=== PATIENT | female | born 1990 | race Caucasian/White ===

== ENCOUNTER 2018-03-22 19:17 | Inpatient (IN) | payer BC ==
[~2018-03-22 19:17] MED LIST: Sodium Chloride 0.9% 10 ML Syringe FLUSH PRN; Terbutaline 1 MG/ML SDV SUBCUT ONE
[2018-03-22] MEDS ORDERED: Lactated Ringers 500 ML IV ONE (20:21)
[2018-03-22] MEDS ORDERED: Carboprost Tromethamine 250 MCG/1 ML Amp IM PRN (20:21)
[2018-03-22] MEDS ORDERED: Sodium Chloride 0.9% 10 ML Syringe FLUSH PRN (20:21)
[2018-03-22] MEDS ORDERED: fentaNYL 100 MCG/2 ML SDV IVPUSH PRN (20:21)
[2018-03-22] MEDS ORDERED: Lidocaine 1% 30 ML SDV INJECT PRN (20:21)
[2018-03-22] MEDS ORDERED: Tranexamic Acid 1,000 MG in Sodium Chloride 0.9% 100 ML IV PRN (20:21)
[2018-03-22] MEDS ORDERED: Misoprostol 400 MCG (4 X 100 MCG TAB) RECTAL PRN (20:21)
[2018-03-22] MEDS ORDERED: Methylergonovine 0.2 MG/1 ML Amp IM PRN (20:21)
[2018-03-22] MEDS ORDERED: Ondansetron 4 MG/2 ML SDV IV PRN (20:21)
[2018-03-22] MEDS ORDERED: Oxytocin/Normal Saline 30 UNIT/500 ML BAG IV SCH (20:30)
[2018-03-22] MEDS: Lactated Ringers 1,000 ML IV SCH (22:04)
[2018-03-23] MEDS ORDERED: Nalbuphine 10 MG/1 ML Vial IM ONE (01:57)
[2018-03-23] MEDS ORDERED: Bupivacaine 0.75%/D5W 2 ML Amp ONE (04:15)
[2018-03-23] MEDS ORDERED: fentaNYL 100 MCG/2 ML SDV ONE (04:16)
[2018-03-23] MEDS ORDERED: EPINEPHrine 1 MG/ML SDV ONE (04:16)
[2018-03-23] MEDS: Lactated Ringers 1,000 ML IV SCH ×2 (04:17→06:03)
--- NOTE | 2018-03-23 04:43 | PCM.SN ---
- Free Text/Narrative Note: Intrathecal. Sitting position, sterile prep and drape, 1% lidocaine w bicarb for skinwheal to L2 L3 interspace. Introducer, 24 ga pencan x 1. Pos CSF, neg heme, neg parasthesia. 15 mcg pf sufenta, 0.1 ml pf 1:1000 epi, 35 mcg pf fentanyl, 0.4 ml pf ns and 6 mg of 0.75% pf bupivacaine injected after CSF aspiration. Pt to L lateral position. Procedure time 3656 to 2022
[2018-03-23] MEDS ORDERED: Calcium Carbonate 500 MG Tab.Chew PO PRN (05:46)
[2018-03-23] MEDS ORDERED: Famotidine 20 MG/2 ML SDV IVPUSH ONE (05:47)
--- NOTE | 2018-03-23 07:26 | HP ---
CHIEF COMPLAINT: Spontaneous rupture. HISTORY OF PRESENT ILLNESS: The patient is a 28-year-old 2, para 1-0-0- 1, currently at 39-4/7 weeks' gestation based on last menstrual period and consistent with conception date and 19-week ultrasound. The patient reports that around 4:30 this afternoon, she noticed leakage of fluid consistent with spontaneous rupture, although not near as large volume of fluid as when she had artificial rupture performed with her prior . movement has been good. She has had some irregular contractions that are just now starting to get stronger, and denies any significant pelvic pressure. Reports these contractions, however, also seem like they are mostly low down in the uterus and not the entire uterus like her Chas Dykes were. No vaginal bleeding. movement has been good. No symptoms of preeclampsia or acute illness. No other concerns at this time. HISTORY: Ultrasound at 19 weeks' gestation showed oblique breech with anterior placenta. Estimated weight at that time 28.6 percentile with normal anatomy. Blood work shows blood type O negative. Rubella immune. Syphilis nonreactive. Urine culture negative. HIV negative. Gonorrhea and Chlamydia negative. TSH normal at 1.16. Wet prep was negative. Platelets 197. One-hour glucose tolerance test of 132. Group B Strep test was negative. This , she has been taking Zinc and vitamin D and had a history of unstable lie, and when she presented for external cephalic version, was found to be spontaneously converted to cephalic presentation. She has a history of gestational diabetes in her prior ; however, this was diet controlled after she stopped eating cookies. PAST MEDICAL HISTORY: Chickenpox as a child, mild case; gestational diabetes, prior ; multiple body piercings; and abnormal Pap smear with negative colposcopy. Menarche age 11 with menses every 28 days and flow of 5 days. Believes that she is resistant to amoxicillin and penicillin as they just do not seem to work for her. She has mild scoliosis and severe needle phobia. PAST SURGICAL HISTORY: PE tubes as a child and wisdom teeth extraction. FAMILY HISTORY: Mother, father, and brother all without any known medical problems. Maternal grandmother, no medical problems. Maternal grandfather with lung cancer and was a smoker. Paternal grandmother has a multitude of medical problems, most of which are felt to be self diagnosed; she, however, has had known stroke and osteoporosis. Paternal grandfather has parkinsonism. Family history is negative for defects, multiple births, anesthesia problems, bleeding problems, clotting disorders, cystic fibrosis, and seizures. SOCIAL HISTORY: She is to Chirag, and they have 1 child together so far, and this will be their second. She has never smoked. Denies any use of drugs, only uses alcohol rarely, and did not have any exposure during the . She works at [employer] and hCirag is a field broomer fulfillment representative for the [email or web address] and also raises his own registered [employer] cattle. He is also a nonsmoker. Reportedly, he and his family are all healthy. MEDICATIONS: 1. vitamins. 2. Zinc. 3. Vitamin D. ALLERGIES: No known drug allergies. REVIEW OF SYSTEMS: Pertinent positives and negatives as per the history of present illness. No recent fever, chills, diarrhea, constipation, nausea, vomiting, skin rashes, headaches, blurry vision, chest pain, shortness of breath, lower extremity edema, or other concerns. PHYSICAL EXAMINATION: Vital Signs: Blood pressure is 132/82 and pulse of 94. She is afebrile. General: This is a pleasant 28-year-old female, who appears her stated age. HEENT: Grossly unremarkable. Heart: Regular without obvious murmur. Lungs: Clear to auscultation bilaterally. Abdomen: Gravid, soft, and nontender. Pelvic: heart tones tracing at 130 beats per minute at baseline with moderate [id number] variability and accelerations noted. Denio showing contractions anywhere from every 2 to 5 minutes. They tend to come in 3s or 4s with pauses in between. Cervix is tight 2 cm dilated, 75% effaced, very soft, and remains posterior. Forebag of fluid is appreciated, and attempted rupture with AmniHook and that was not successful. Extremities: No edema, erythema, or tenderness noted. ASSESSMENT: 1. A 39-4/7 weeks' intrauterine . 2. History consistent with spontaneous rupture of membranes. However, that must have been a forebag, and she is not in an regular labor pattern. 3. Blood type O negative, rubella immune, and group B Streptococcus negative. 4. Refused influenza vaccine. 5. History of gestational diabetes, prior . PLAN: We will initiate Pitocin at this time and get the baby's head down a little bit lower to the cervix, and then anticipate if she is in normal labor, we can leave the amniotic sac intact. If this seems to be slowing her down, when the head is better applied and she is having regular contractions, I will come back in and perform amniotomy. All of this was discussed with the patient. She plans on having an intrathecal for pain management. Her questions have been answered. [facility] /[id number] TESSY
--- NOTE | 2018-03-23 10:18 | DEL ---
DATE: 03/23/2018 PREPROCEDURE DIAGNOSES: 1. A 39 and 5/7-week intrauterine by last menstrual period, confirmed with a 19-week ultrasound. 2. 2, para 1-0-0-1. 3. Blood type O negative, rubella immune, group B streptococcus negative. 4. Refused influenza vaccine. 5. History of gestational diabetes prior . POSTPROCEDURE DIAGNOSES: 1. A 39 and 5/7-week intrauterine by last menstrual period, confirmed with a 19-week ultrasound. 2. 2, para 2-0-0-2. 3. Blood type O negative, rubella immune, group B streptococcus negative. 4. Refused influenza vaccine. 5. History of gestational diabetes prior . 6. Status post spontaneous vaginal delivery. 7. Repair of a first-degree laceration. BRIEF HISTORY: A 28-year-old female with the above-listed diagnoses presented to the hospital reporting spontaneous rupture of membranes at home about 4:30 in the afternoon on 03/22/2018. At presentation, she was having an irregular contraction pattern, and minimal cervical change from prior exams at the office. Pitocin was started, and on cervical exam, baby found to be ballotable and secondary bag still intact. After labor was well established, she received an intrathecal for anesthesia and continued it on to complete. Bag of water was then ruptured and noted to be clear. After allowing her a little bit of time to rest, she was able to deliver her baby with only pushing through 2 contractions. DETAILS: With the patient in lithotomy position, she delivered a viable male over intact perineum in the OA position. was dried, stimulated, and bulb suctioned, placed upon mother's abdomen. After a delay, three-vessel umbilical cord was doubly clamped and then cut, and the cord blood sample was obtained. Placenta was then delivered by gentle cord traction and concomitant uterine massage. Labia and vagina inspected. There was a first-degree laceration which was repaired with a simple running stitch of 3-0 Vicryl in the usual fashion with good reapproximation. COMPLICATIONS: None. ESTIMATED BLOOD LOSS: 200 mL. DISPOSITION: Mother and baby to stay in the room at this time to initiate . [facility] /[id number] [facility]
[2018-03-23] MEDS: Ibuprofen 800 MG Tab PO PRN (16:40)
[2018-03-23] MEDS: Acetaminophen 325 MG Tab PO PRN (22:01)
[2018-03-24] MEDS: Ibuprofen 800 MG Tab PO PRN ×3 (00:57→22:07)
[2018-03-24] MEDS: Acetaminophen 325 MG Tab PO PRN ×2 (05:16→18:02)
--- NOTE | 2018-03-24 08:29 | PN ---
DATE: 03/24/2018 SUBJECTIVE: day #1, status post uncomplicated vaginal delivery with first-degree repair. The patient reports she is doing well, voiding without difficulties, has not yet had a bowel movement. Uterine cramping is more severe than she remembers with prior pregnancies and delivery, but she also reports the labor was worse as well. No headaches or blurry vision. No chest pain or shortness of breath. seems to be going well. Uncertain if she wants to go home today or tomorrow. She will discuss things with her and reports that she has received her RhoGAM because the baby's blood type was O positive and her's is O negative. OBJECTIVE: General: Pleasant, well-appearing, 28-year-old female. Vital Signs: Temperature 97.6, pulse 65, blood pressure 102/68, respiratory rate of 16, and O2 saturations 99% on room air. Heart: Regular without murmur. Lungs: Clear to auscultation bilaterally. Abdomen: Soft and nontender. Fundus is firm and 3 below the umbilicus. Mild abdominal distention noted. Extremities: No edema, erythema, or tenderness. ASSESSMENT: 1. 2, para 2-0-0-2, status post uncomplicated spontaneous vaginal delivery. 2. Status post first-degree laceration repair. 3. Blood type O negative. Baby's blood type is O positive. She has received her RhoGAM. PLAN: Continue normal cares and anticipate discharge home either later today or possibly tomorrow. We will see how she does through the course of the morning before we decide. [facility] /[id number]
[2018-03-24] MEDS: Docusate Sodium 100 MG Cap PO PRN (10:14)
[2018-03-24] MEDS ORDERED: Lidocaine 1% 30 ML SDV INJECT ONE (11:33)
[2018-03-24] MEDS ORDERED: Bupivacaine 0.75%/D5W 2 ML Amp INJECT ONE (11:33)
[2018-03-24] MEDS ORDERED: fentaNYL 100 MCG/2 ML SDV ITHECAL ONE (11:33)
[2018-03-25] MEDS: Docusate Sodium 100 MG Cap PO PRN (08:55)
[2018-03-25 16:08] VITALS: BP 105/50
--- NOTE | 2018-03-26 10:16 | DISCH ---
ADMITTING DIAGNOSES: 1. A 39 and 4/7 weeks' intrauterine by last menstrual period. 2. 2, para 1-0-0-1. 3. Premature rupture of membranes. 4. Blood type O negative, rubella immune, and group B streptococcus negative. 5. Refused influenza vaccine. 6. History of gestational diabetes, prior ; not affecting this . DISCHARGE DIAGNOSES: 1. A 39 and 4/7 weeks' intrauterine by last menstrual period. 2. 2, now para 2-0-0-2. 3. Premature rupture of membranes. 4. Blood type O negative, rubella immune, and group B streptococcus negative. 5. Refused influenza vaccine. 6. History of gestational diabetes, prior ; not affecting this . 7. Spontaneous vaginal delivery at 39 weeks 5 days' gestation. 8. Status post first-degree laceration repair. 9. Status post RhoGAM administration for Rhesus positive blood type on the baby. BRIEF HISTORY: A 28-year-old female admitted to the hospital with the above- listed diagnoses after presenting with spontaneous rupture of membranes at home. She was not in an active labor pattern, and Pitocin was initiated. Later she was found to have a secondary bag still present which was ruptured, and after that, she readily went on to vaginal delivery without complications. Stage I estimated at about 7 hours, stage II only 3 minutes, and stage III is only 7 minutes. See delivery notes and history and physical for full details. HOSPITAL COURSE: Hospital course has been good. Since delivery, she has been ambulating, tolerating regular diet, voiding without difficulties, had not yet had a bowel movement. Denies any symptoms of preeclampsia. has been going well. She is ready for discharge at this time. DISCHARGE CONDITION: Good. PHYSICAL EXAMINATION: Vital Signs: Temperature is 97.7, pulse of 61, blood pressure 105/50, usually runs in the one-teens over 60s and 70s; respiratory rate of 20; and O2 saturation 100% on room air. Heart: Regular without murmur. Lungs: Clear to auscultation bilaterally. Abdomen: Soft and nontender. Mild distention present. Fundus is firm and well below the umbilicus. Extremities: No edema, erythema, or tenderness noted. DISCHARGE MEDICATIONS: 1. Tylenol 650 mg every 6 hours as needed for pain. 2. Ibuprofen 600 mg every 6 hours as needed for pain. 3. vitamin, continue 1 daily. 4. Colace 100 mg twice daily as needed for constipation. DISPOSITION: Home with family. FOLLOWUP: She will be seen in the office in 6 weeks or sooner if any problems arise. We will also be able to check in with her when she brings her child for the well-baby visit. [facility] /[id number]
== END 2018-03-25 13:00 | disposition home or self-care (01) | DRG 560 ==
LOC: DL.OBCHECK 19:17 → DL.OB 19:21 → OBSVTOIN 03-23 06:53 → DL.MS 03-24 20:17
PROVIDERS: ADMIT Family Medicine; ATTEND Family Medicine
PROC: 10E0XZZ Delivery of Products of Conception, External Approach (ICD-10-PCS; principal; 2018-03-23)
PROC: 0HQ9XZZ Repair Perineum Skin, External Approach (ICD-10-PCS; 2018-03-23)
PROC: 3E0S3GC Introduction of Other Therapeutic Substance into Epidural Space, Percutaneous Approach (ICD-10-PCS; 2018-03-23)
DX: O70.0 First degree perineal laceration during delivery (principal); Z3A.39 39 weeks gestation of pregnancy; Z37.0 Single live birth; Z87.59 Personal history of other complications of pregnancy, childbirth and the puerperium
CPT/HCPCS: 36415; 36430; 59300; 59409; 85027; 85460; 86850; 86870; 86900; 86901; A9270-GY; J2300; J2405; J2590; J2790; J3010; J3490; J7120

== ENCOUNTER 2019-05-07 16:56 | Emergency (ER) | payer BC ==
[2019-05-07 17:13] VITALS: BP 121/80
[2019-05-07] MEDS ORDERED: Ketorolac 30 MG/ML SDV IVPUSH ONE (17:39)
[2019-05-07] MEDS ORDERED: Ondansetron 4 MG/2 ML SDV IV ONE (17:39)
[2019-05-07] MEDS ORDERED: Sodium Chloride 0.9% 10 ML Syringe FLUSH PRN (17:39)
[2019-05-07] MEDS ORDERED: Sodium Chloride 0.9% 1,000 ML IV ONE (17:39)
--- NOTE | 2019-05-07 17:41 | EDM.PDOC ---
"Scribed by Kajal Ibrahim 05/07/19 [id number] for Taylor Tyler MD ED HPI GENERAL MEDICAL PROBLEM - General Chief Complaint: Abdominal Pain Stated Complaint: PAIN IN LWR LT SIDE Time Seen by Provider: 05/07/19 17:17 Source of Information: Reports: Patient, RN, RN Notes Reviewed History Limitations: Reports: No Limitations - History of Present Illness INITIAL COMMENTS - FREE TEXT/NARRATIVE: Patient presents to ER with complaint of left lower abdominal pain which started yesterday. Lower left abdominal pain radiates into her back. Patient had diarrhea today. Pain just started today. No problems with urination. Onset Date: 05/06/19 Duration: Constant Location: Reports: Abdomen Quality: Reports: Ache Severity: Moderate Improves with: Reports: None Worsens with: Reports: None Associated Symptoms: Reports: No Other Symptoms Left Lower Abdominal Pain Score (Numeric/FACES): 9 - Related Data Allergies Allergy/AdvReac Type Severity Reaction Status Date / Time No Known Allergies Allergy Verified 03/23/18 01:01 Home Meds: Home Meds Cholecalciferol (Vitamin D3) [Vitamin D3] 1,000 units PO DAILY 03/23/18 [History ] Ferrous Sulfate [Iron] 325 mg PO DAILY 03/23/18 [History] Magnesium Oxide 250 mg PO DAILY 03/23/18 [History] #103/Iron Fumarate/Fa [ ] 1 tab PO DAILY 03/23/18 [ History] Past Medical History - Past Health History Medical/Surgical History: Denies 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 ED EXAM, GENERAL - Physical Exam Exam: See Below Exam Limited By: No Limitations General Appearance: Alert, WD/WN, No Apparent Distress Throat/Mouth: Normal Voice, No Airway Compromise Head: Atraumatic, Normocephalic Neck: Normal Inspection Respiratory/Chest: No Respiratory Distress, Lungs Clear, Normal Breath Sounds, No Accessory Muscle Use, Chest Non-Tender Cardiovascular: Normal Peripheral Pulses, Regular Rate, Rhythm, No Edema, No Gallop, No JVD, No Murmur, No Rub GI/Abdominal: Normal Bowel Sounds, Soft, Tender (LLQ). No: Guarding, Rigid (Female) Exam: Deferred Rectal (Female) Exam: Deferred Back Exam: Normal Inspection Extremities: Normal Inspection Neurological: Alert, Oriented, No Motor/Sensory Deficits Psychiatric: Normal Mood Skin Exam: Warm, Dry, Intact, Normal Color, No Rash Course - Vital Signs Last Recorded V/S: Last Vital Signs Temp 96.8 F 05/07/19 17:12 Pulse 75 05/07/19 17:12 Resp 16 05/07/19 17:12 BP 121/80 05/07/19 17:12 Pulse Ox 100 05/07/19 17:12 - Orders/Labs/Meds Orders: Active Orders 24 hr Category Date Time Status Peripheral IV Care [RC] . DIRECTED Care 05/07/19 17:39 Active Sodium Chloride 0.9% [Normal Saline] 1,000 ml Med 05/07/19 17:39 Active IV .BOLUS Sodium Chloride 0.9% [Saline Flush] Med 05/07/19 17:39 Active 10 ml FLUSH ASDIRECTED PRN Peripheral IV Insertion Adult [OM.PC] Stat Oth 05/07/19 17:38 Ordered Medication Orders Sodium Chloride (Normal Saline) 1,000 mls @ 999 mls/hr IV .BOLUS ONE Stop: 05/07/19 18:39 Last Admin: 05/07/19 17:52 Dose: 999 mls/hr Sodium Chloride (Saline Flush) 10 ml FLUSH ASDIRECTED PRN PRN Reason: Keep Vein Open Last Admin: 05/07/19 17:56 Dose: 10 ml Labs: Laboratory Tests 05/07/19 05/07/19 05/07/19 Range/Units 17:24 17:44 17:47 WBC 10.7 H (5.0-10.0) 10^3/uL RBC 4.30 (4.2-5.4) 10^6/uL Hgb 13.2 (12.0-16.0) g/dL Hct 38.3 (37.0-47.0) % MCV 89.1 (80-100) fL MCH 30.7 (27.0-34.0) pg MCHC 34.5 (33.0-35.0) g/dL Plt Count 252 (150-450) 10^3/uL Neut % (Auto) 77.5 H (42.2-75.2) % Lymph % (Auto) 17.8 L (20.5-50.1) % [place] % (Auto) 4.3 (2-8) % Eos % (Auto) 0.3 L (1.0-3.0) % Baso % (Auto) 0.1 (0.0-1.0) % Sodium (135-145) mmol/L Potassium (3.6-5.0) mmol/L Chloride (101-111) mmol/L Carbon Dioxide (21.0-31.0) mmol/L Anion Gap BUN (7-18) mg/dL Creatinine (0.6-1.3) mg/dL Est Cr Clr Drug Dosing mL/min Estimated GFR (MDRD) BUN/Creatinine Ratio Glucose (74-105) mg/dL Lactic Acid (0.5-2.2) mmol/L Calcium (8.4-10.2) mg/dl Total Bilirubin (0.2-1.0) mg/dL AST (10-42) IU/L ALT (10-60) IU/L Alkaline Phosphatase (42-121) IU/L Total Protein (6.7-8.2) g/dl Albumin (3.2-5.5) g/dl Globulin Albumin/Globulin Ratio Amylase (28-100) U/L Lipase (22-51) U/L Urine Color [place] (YELLOW) Urine Appearance Turbid (CLEAR) Urine pH 7.0 (5.0-9.0) Ur Specific [place] 1.025 (1.005-1.030) Urine Protein 30 H (NEGATIVE) Urine Glucose (UA) Negative (NEGATIVE) Urine Ketones Trace H (NEGATIVE) Urine Occult Blood Large H (NEGATIVE) Urine Nitrite Negative (NEGATIVE) Urine Bilirubin Negative (NEGATIVE) Urine Urobilinogen 0.2 (0.2-1.0) mg/dL Ur Leukocyte Esterase Negative (NEGATIVE) Urine RBC >100 H /HPF Urine WBC 0-5 (0-5/HPF) /HPF Ur Epithelial Cells Few (NOT SEEN) /HPF Amorphous Sediment Many H (NOT SEEN) /HPF Urine Bacteria Occasional (0-FEW/HPF) /HPF Urine Mucus Few H (NOT SEEN) /LPF Urine HCG, Qual Negative 05/07/19 05/07/19 Range/Units 17:47 17:47 WBC (5.0-10.0) 10^3/uL RBC (4.2-5.4) 10^6/uL Hgb (12.0-16.0) g/dL Hct (37.0-47.0) % MCV (80-100) fL MCH (27.0-34.0) pg MCHC (33.0-35.0) g/dL Plt Count (150-450) 10^3/uL Neut % (Auto) (42.2-75.2) % Lymph % (Auto) (20.5-50.1) % [place] % (Auto) (2-8) % Eos % (Auto) (1.0-3.0) % Baso % (Auto) (0.0-1.0) % Sodium 139 (135-145) mmol/L Potassium 3.8 (3.6-5.0) mmol/L Chloride 103 (101-111) mmol/L Carbon Dioxide 26.0 (21.0-31.0) mmol/L Anion Gap 13.8 BUN 16 (7-18) mg/dL Creatinine 0.9 (0.6-1.3) mg/dL Est Cr Clr Drug Dosing 73.93 mL/min Estimated GFR (MDRD) > 60 BUN/Creatinine Ratio 17.77 Glucose 118 H (74-105) mg/dL Lactic Acid 1.4 (0.5-2.2) mmol/L Calcium 8.8 (8.4-10.2) mg/dl Total Bilirubin 0.5 (0.2-1.0) mg/dL AST 18 (10-42) IU/L ALT 18 (10-60) IU/L Alkaline Phosphatase 55 (42-121) IU/L Total Protein 7.1 (6.7-8.2) g/dl Albumin 4.0 (3.2-5.5) g/dl Globulin 3.1 Albumin/Globulin Ratio 1.29 Amylase 58 (28-100) U/L Lipase 28 (22-51) U/L Urine Color (YELLOW) Urine Appearance (CLEAR) Urine pH (5.0-9.0) Ur Specific [place] (1.005-1.030) Urine Protein (NEGATIVE) Urine Glucose (UA) (NEGATIVE) Urine Ketones (NEGATIVE) Urine Occult Blood (NEGATIVE) Urine Nitrite (NEGATIVE) Urine Bilirubin (NEGATIVE) Urine Urobilinogen (0.2-1.0) mg/dL Ur Leukocyte Esterase (NEGATIVE) Urine RBC /HPF Urine WBC (0-5/HPF) /HPF Ur Epithelial Cells (NOT SEEN) /HPF Amorphous Sediment (NOT SEEN) /HPF Urine Bacteria (0-FEW/HPF) /HPF Urine Mucus (NOT SEEN) /LPF Urine HCG, Qual Meds: Medications Generic Name Dose Route Start Last Admin Trade Name Freq PRN Reason Stop Dose Admin Sodium Chloride 1,000 mls @ 999 mls/hr 05/07/19 17:39 05/07/19 17:52 Normal Saline IV 05/07/19 18:39 999 mls/hr .BOLUS ONE Administration Sodium Chloride 10 ml 05/07/19 17:39 05/07/19 17:56 Saline Flush FLUSH 10 ml ASDIRECTED PRN Administration Keep Vein Open Discontinued Medications Generic Name Dose Route Start Last Admin Trade Name Freq PRN Reason Stop Dose Admin Ketorolac Tromethamine 30 mg 05/07/19 17:39 05/07/19 17:54 Toradol IVPUSH 05/07/19 17:40 30 mg ONETIME ONE Administration Ondansetron HCl 4 mg 05/07/19 17:39 05/07/19 17:54 Zofran IV 05/07/19 17:40 4 mg ONETIME ONE Administration - Radiology Interpretation Free Text/Narrative:: [facility] Final Radiology Report Call: [phone] assistance Online chat: [email or web address] Name: PARVEZ LICEA Age: 29Years F Date: 05/07/2019 SSN: -- : [id number] Study: CT ABDOMEN/PELVIS WO Requesting Physician: TAYLOR TYLER Images: [id number] Addl Studies: Provided Clinical History: Contrast: Without Contrast Medium: Contrast Amount: Contrast Method: Page 1 of 2 EXAM: CT Abdomen and Pelvis Without Contrast EXAM DATE/TIME: 05/07/2019 6:23 PM CLINICAL HISTORY: 29 years old, female; Other: Llq abd pain, left flank pain--hematuria TECHNIQUE: Imaging protocol: Computed tomography of the abdomen and pelvis without contrast. Radiation optimization: All CT scans at this facility use at least one of these dose optimization techniques: automated exposure control; mA and/or kV adjustment per patient size (includes targeted exams where dose is matched to clinical indication); or iterative reconstruction. COMPARISON: No relevant prior studies available. FINDINGS: Liver: Cyst right lobe of the liver measures 10 mm. Liver otherwise unremarkable. Gallbladder and bile ducts: Normal. No calcified stones. No ductal dilation. Pancreas: Normal. No ductal dilation. Spleen: Normal. No splenomegaly. Adrenals: Normal. No mass. Kidneys and ureters: Hypodensity right kidney measures 2.1 cm consistent with a cyst. Confirmation with ultrasound could be obtained if clinically desired. Several nonobstructive calculi left kidney. PARVEZ LICEA | Final Radiology Report CONFIDENTIALITY STATEMENT This report is intended only for use by the referring physician, and only in accordance with law. If you received this in error, call [phone]. Page 2 of 2 There is a 4 mm. obstructive ureteral calculus located at the left UV junction resulting in mild to moderate proximal hydroureteronephrosis. There is periureteral and perinephric stranding. No urinoma demonstrated. Stomach and bowel: Unremarkable. No obstruction. No mucosal thickening. Appendix: No evidence of appendicitis. Intraperitoneal space: Unremarkable. No free air. No significant fluid collection. Vasculature: Unremarkable. No abdominal aortic aneurysm. Lymph nodes: Unremarkable. No enlarged lymph nodes. Bladder: Unremarkable as visualized. Reproductive: Unremarkable as visualized. Bones/joints: Unremarkable. No acute fracture. Soft tissues: Unremarkable. IMPRESSION: There is a 4 mm. obstructive ureteral calculus located at the left UV junction resulting in mild to moderate proximal hydroureteronephrosis. There is periureteral and perinephric stranding. No urinoma demonstrated. Thank you for allowing us to participate in the care of your patient. Dictated and Authenticated by: Malvin Guillory MD 05/07/2019 6:36 PM Central Time ([place] & [place]) Departure - Departure Time of Disposition: 18:38 Disposition: Home, Self-Care 01 Condition: Good Clinical Impression: Left ureteral calculus - Discharge Information *PRESCRIPTION DRUG MONITORING PROGRAM REVIEWED*: No *COPY OF PRESCRIPTION DRUG MONITORING REPORT IN PATIENT IVANNA: No Instructions: Kidney Stones Forms: ED Department Discharge Additional Instructions: Rx: Flomax 0.4mg Rx: Zofran 4mg Rx: Percocet 5mg/325mg Follow up in clinic next week for recheck, and referral to urology if needed. - My Orders Last 24 Hours: My Active Orders 05/07/19 17:38 Peripheral IV Insertion Adult [OM.PC] Stat 05/07/19 17:39 Peripheral IV Care [RC] . DIRECTED Sodium Chloride 0.9% [Normal Saline] 1,000 ml IV .BOLUS Sodium Chloride 0.9% [Saline Flush] 10 ml FLUSH ASDIRECTED PRN - Assessment/Plan Last 24 Hours: My Active Orders 05/07/19 17:38 Peripheral IV Insertion Adult [OM.PC] Stat 05/07/19 17:39 Peripheral IV Care [RC] . DIRECTED Sodium Chloride 0.9% [Normal Saline] 1,000 ml IV .BOLUS Sodium Chloride 0.9% [Saline Flush] 10 ml FLUSH ASDIRECTED PRN I have read and agree with the documentation that has been completed regarding this visit. By signing this record, I attest that the documentation was completed in my physical presence and is an accurate record of the encounter."
[2019-05-07 18:14] LABS: ANION GAP 13.8; CHLORIDE,CL 103 mmol/L (101-111); SODIUM,NA 139 mmol/L (135-145)
[2019-05-07] MEDS ORDERED: Tamsulosin 0.4 MG Cap.ER PO ONE (18:43)
== END 2019-05-07 19:00 | disposition home or self-care (01) ==
LOC: DL.ED 16:56
DX: N13.2 Hydronephrosis with renal and ureteral calculous obstruction (principal)
CPT/HCPCS: 36415; 74176; 80053; 81001; 81025; 82150; 83605; 83690; 85025; 96361; 96374; 96375; 99284; A9270; J1885; J2405; J7030

== ENCOUNTER 2022-01-24 16:41 | Inpatient (IN) | payer BC ==
[2022-01-24] MEDS ORDERED: Naloxone 2 MG/2 ML Syringe IVPUSH PRN (18:14)
[2022-01-24] MEDS ORDERED: ePHEDrine 50 MG/ML SDV IVPUSH PRN (18:14)
[2022-01-24] MEDS ORDERED: Lactated Ringers 500 ML IV SCH ×2 (18:15)
[2022-01-24] MEDS ORDERED: fentaNYL 100 MCG/2 ML SDV IVPUSH PRN (18:25)
[2022-01-24] MEDS ORDERED: Acetaminophen 325 MG Tab PO PRN (18:27)
[2022-01-24] MEDS ORDERED: Ondansetron 4 MG/2 ML SDV IVPUSH PRN (18:27)
[2022-01-24] MEDS ORDERED: Methylergonovine 0.2 MG/1 ML Amp IM PRN (18:27)
[2022-01-24] MEDS ORDERED: Misoprostol 400 MCG (4 X 100 MCG TAB) RECTAL PRN (18:27)
[2022-01-24] MEDS ORDERED: Tranexamic Acid 1,000 MG in Sodium Chloride 0.9% 100 ML IV PRN (18:27)
[2022-01-24] MEDS ORDERED: Lidocaine 1% 30 ML SDV INJECT PRN (18:27)
[2022-01-24] MEDS ORDERED: Carboprost Tromethamine 250 MCG/1 ML Amp IM PRN (18:27)
[2022-01-24] MEDS ORDERED: Lactated Ringers 1,000 ML IV ONE (18:27)
[2022-01-24] MEDS ORDERED: Oxytocin/Normal Saline 30 UNIT/500 ML BAG IV SCH (18:30)
[2022-01-24] MEDS: Lactated Ringers 1,000 ML IV SCH (21:34)
[2022-01-25] MEDS ORDERED: fentaNYL 100 MCG/2 ML SDV ITHECAL ONE (00:01)
[2022-01-25] MEDS ORDERED: fentaNYL 100 MCG/2 ML SDV ONE (00:04)
[2022-01-25] MEDS: Lactated Ringers 1,000 ML IV SCH (00:25)
[2022-01-25] MEDS ORDERED: fentaNYL 100 MCG/2 ML SDV IVPUSH ONE (00:39)
[2022-01-25] MEDS ORDERED: Benzocaine/Menthol 20%-0.5% Spray 78 GM Cannister TOP PRN (01:41)
[2022-01-25] MEDS ORDERED: Oxytocin 10 Units/1 ML SDV IM PRN (01:41)
[2022-01-25] MEDS ORDERED: Simethicone 80 MG Tab.Chew PO PRN (01:41)
[2022-01-25] MEDS: Ibuprofen 800 MG Tab PO PRN ×2 (08:52→18:22)
[2022-01-25] MEDS ORDERED: Prenatal Multivitamin with Calcium/Folic Acid/Iron Tab PO SCH (09:00)
[2022-01-25] MEDS: Docusate Sodium 100 MG Cap PO PRN (21:08)
[2022-01-25] MEDS ORDERED: Witch Hazel Medicated Pads 100/Jar TOP PRN (21:11)
[2022-01-26] MEDS: Ibuprofen 800 MG Tab PO PRN ×2 (03:00→19:00)
[2022-01-26 10:37] VITALS: BP 121/84; PULSE 86
[2022-01-26] MEDS: Docusate Sodium 100 MG Cap PO PRN (19:00)
== END 2022-01-26 19:45 | disposition home or self-care (01) | DRG 560 ==
LOC: DL.OBCHECK 16:41 → UNDOADMOB 16:43 → DL.OB 16:43 → OBSVTOIN 01-25 00:47
PROVIDERS: ADMIT Family Medicine; ATTEND Family Medicine
PROC: 10E0XZZ Delivery of Products of Conception, External Approach (ICD-10-PCS; principal; 2022-01-25)
PROC: 10907ZC Drainage of Amniotic Fluid, Therapeutic from Products of Conception, Via Natural or Artificial Opening (ICD-10-PCS; 2022-01-25)
PROC: 3E0R3BZ Introduction of Anesthetic Agent into Spinal Canal, Percutaneous Approach (ICD-10-PCS; 2022-01-25)
PROC: 3E033VJ Introduction of Other Hormone into Peripheral Vein, Percutaneous Approach (ICD-10-PCS; 2022-01-25)
DX: O24.420 Gestational diabetes mellitus in childbirth, diet controlled (principal); Z37.0 Single live birth; Z3A.39 39 weeks gestation of pregnancy; O70.0 First degree perineal laceration during delivery; Z20.822 Contact with and (suspected) exposure to COVID-19; O99.02 Anemia complicating childbirth; D62 Acute posthemorrhagic anemia
CPT/HCPCS: 36415; 59409; 62320; 85027; 85461; 86850; 86870; 86900; 86901; A9270-GY; J2405; J2590; J2790; J3010; J7120; U0002

== ENCOUNTER 2022-01-31 10:42 | Emergency (ER) | payer BC ==
[2022-01-31 11:30] VITALS: BP 129/90; PULSE 93
[2022-01-31 11:58] LABS: ANION GAP 14.3 mEq/L (7-13); CHLORIDE,CL 107 mmol/L (98-107); SODIUM,NA 140 mmol/L (136-145)
[2022-01-31 12:14] LABS: CORONAVIRUS COVID-19 NAA NEGATIVE (NEGATIVE); RESPIRATORY SYNCYTIAL VIR NAA NEGATIVE (NEGATIVE)
[2022-01-31] MEDS ORDERED: Iopamidol 755 Mg/ML 100 ML Bottle IVPUSH ONE (13:49)
[2022-01-31] MEDS ORDERED: Lactated Ringers 1,000 ML IV ONE (14:47)
== END 2022-01-31 16:17 | disposition home or self-care (01) ==
LOC: DL.ED 10:42
DX: O99.893 Other specified diseases and conditions complicating puerperium (principal); R06.02 Shortness of breath; E86.0 Dehydration; Z20.822 Contact with and (suspected) exposure to COVID-19
CPT/HCPCS: 0241U; 36415; 71260; 80053; 81001; 83880; 84443; 84484; 85025; 85379; 86140; 93005; 93010; 96360; 99284; 99284-25; J7120; Q9967